=== PATIENT | female | born 1940 | race Two or more races ===

== ENCOUNTER 2017-09-05 11:23 | Outpatient (CLI) | payer OTHER ==
[~2017-09-05 11:23] MED LIST: GLUCOPHAGE XR500 MG PO; LIPITOR20 MG PO; LISINOPRIL20 MG PO; NORVASC5 MG PO
== END 2017-09-05 12:00 | disposition home or self-care (01) ==
LOC: NUCLEAR 11:23
DX: I82.432 Acute embolism and thrombosis of left popliteal vein (principal)

== ENCOUNTER 2017-09-06 13:15 | Outpatient (CLI) | payer OTHER | END 2017-09-06 13:19 | disposition home or self-care (01) | LOC: SONOGRAMA 13:15 → MAMO-SONO 13:15 → SONOGRAMA 13:19 | DX: M25.512 Pain in left shoulder (principal); I10 Essential (primary) hypertension; I34.0 Nonrheumatic mitral (valve) insufficiency; I36.8 Other nonrheumatic tricuspid valve disorders; I63.50 Cerebral infarction due to unspecified occlusion or stenosis of unspecified cerebral artery; I67.2 Cerebral atherosclerosis; I73.9 Peripheral vascular disease, unspecified; E78.2 Mixed hyperlipidemia; E11.42 Type 2 diabetes mellitus with diabetic polyneuropathy; E11.8 Type 2 diabetes mellitus with unspecified complications; E11.29 Type 2 diabetes mellitus with other diabetic kidney complication; E89.0 Postprocedural hypothyroidism; J32.0 Chronic maxillary sinusitis; J32.8 Other chronic sinusitis; K57.30 Diverticulosis of large intestine without perforation or abscess without bleeding; K59.00 Constipation, unspecified; R39.15 Urgency of urination; R80.9 Proteinuria, unspecified; M25.562 Pain in left knee; I69.954 Hemiplegia and hemiparesis following unspecified cerebrovascular disease affecting left non-dominant side; D48.5 Neoplasm of uncertain behavior of skin; Z68.29 Body mass index [BMI] 29.0-29.9, adult; M75.32 Calcific tendinitis of left shoulder; M25.561 Pain in right knee ==

== ENCOUNTER 2017-09-06 14:32 | Outpatient (CLI) | payer OTHER | END 2017-09-06 14:39 | disposition home or self-care (01) | LOC: LAB 14:32 | DX: I34.0 Nonrheumatic mitral (valve) insufficiency (principal) ==

== ENCOUNTER 2017-09-11 11:29 | Outpatient (CLI) | payer OTHER | END 2017-09-11 14:50 | disposition home or self-care (01) | LOC: MRI 11:29 | DX: I63.50 Cerebral infarction due to unspecified occlusion or stenosis of unspecified cerebral artery (principal); I10 Essential (primary) hypertension; I34.0 Nonrheumatic mitral (valve) insufficiency; I36.8 Other nonrheumatic tricuspid valve disorders; I67.2 Cerebral atherosclerosis; I73.9 Peripheral vascular disease, unspecified; E78.2 Mixed hyperlipidemia; E11.42 Type 2 diabetes mellitus with diabetic polyneuropathy; E11.29 Type 2 diabetes mellitus with other diabetic kidney complication; E11.8 Type 2 diabetes mellitus with unspecified complications; E89.0 Postprocedural hypothyroidism; E03.8 Other specified hypothyroidism; J32.0 Chronic maxillary sinusitis; J32.8 Other chronic sinusitis; K57.30 Diverticulosis of large intestine without perforation or abscess without bleeding; K59.00 Constipation, unspecified; R39.15 Urgency of urination; R80.9 Proteinuria, unspecified; M25.562 Pain in left knee; I69.954 Hemiplegia and hemiparesis following unspecified cerebrovascular disease affecting left non-dominant side; D48.5 Neoplasm of uncertain behavior of skin; Z68.29 Body mass index [BMI] 29.0-29.9, adult; M75.32 Calcific tendinitis of left shoulder; M25.561 Pain in right knee | CPT/HCPCS: 70544; 73721 ==